=== PATIENT | male | born 1970 | race Caucasian/White ===

== ENCOUNTER 2020-07-24 10:36 | Outpatient (CLI) | payer OTHER, SELFPAY ==
--- NOTE | ~2020-07-24 | MR_ITS ---
EXAMINATION: MR cervical spine wo con EXAM DATE: 07/24/2020 12:11 INDICATION: Cervical radiculopathy. Pain and numbness in left thumb. TECHNIQUE: Multi-sequential, multiplanar MR images of the cervical spine were obtained without contra st. Axial T2, axial T2 MERGE sequence. Sagittal T1, T2, T2 fat saturation images also obtained. Th ere is no prior study for comparison. FINDINGS: The spinal cord signal intensity and intrinsic morphology is normal. Cervicomedullary junc tion is normal in appearance. Mild to moderate disc disease at C5-6 and C6-7. The vertebral bodies ar e aligned in the AP dimension. There are no suspicious marrow signal abnormalities. Paraspinal soft t issue is unremarkable. Level by level evaluation: C2-C3: Disc does not extend beyond the endplate margin. Uncovertebral joint arthropathy: None. Facet joint arthropathy: Mild left. Neural foraminal stenosis: No stenosis. Central canal stenosis: No stenosis. C3-C4: Tiny right central extrusion. Uncovertebral joint arthropathy: None. Facet joint arthropathy: Mild bilateral. Neural foraminal stenosis: No stenosis. Central canal stenosis: No stenosis. C4-C5: There is a minimal diffuse disc bulge. Uncovertebral joint arthropathy: Mild left. Facet joint arthropathy: Mild to moderate bilateral. Neural foraminal stenosis: Mild bilateral. Central canal stenosis: No stenosis. C5-C6: There is a mild to moderate diffuse disc bulge asymmetric to the right. Uncovertebral joint arthropathy: Mild to moderate bilateral. Facet joint arthropathy: Mild bilateral. Neural foraminal stenosis: Moderate to severe right, probably more from disc bulge than arthropathy. Mild left. Central canal stenosis: Mild. C6-C7: There is a mild to moderate diffuse disc bulge asymmetric to the right. Uncovertebral joint arthropathy: Moderate right, mild to moderate left. Facet joint arthropathy: Mild bilateral. Neural foraminal stenosis: Moderate to severe right. Moderate left. Central canal stenosis: Mild. C7-T1: Disc does not extend beyond the endplate margin. Uncovertebral joint arthropathy: Mild bilateral. Facet joint arthropathy: Mild bilateral. Neural foraminal stenosis: No stenosis. Central canal stenosis: No stenosis. IMPRESSION: 1. Moderate to severe right neural foraminal stenosis at C5-6 and 6-7. 2. Otherwise relatively mild cervical spondylosis. Reviewed, dictated and finalized at location B. OSIVES DETONATOR
== END 2020-07-24 10:37 | disposition home or self-care (01) ==
LOC: ANHIMG 10:40
PROVIDERS: PCP Family Medicine; Visit Provider Psychiatry & Neurology Neurology
DX: M47.22 Other spondylosis with radiculopathy, cervical region (principal); M48.02 Spinal stenosis, cervical region
CPT/HCPCS: 72141

== ENCOUNTER → 2021-11-28 11:15 | Outpatient (CLI) | payer OTHER, SELFPAY ==
--- NOTE | ~2021-11-28 | XR_ITS ---
EXAMINATION: XR hand BI arthritis min 3V DATE: 11/28/2021 11:53 INDICATION: Pain in unspecified joint. Bilateral hand pain. TECHNIQUE: 4 views of the right hand and 4 views of the left hand on 7 radiographs were obtained. COMPARISON: None. FINDINGS: RIGHT HAND: Bone alignment is normal. No fracture. There is mild osteoarthritis of triscaphe joint, s evere osteoarthritis of first carpometacarpal joint, moderate osteoarthritis of first-fourth metacarp ophalangeal joints, mild osteoarthritis of fifth metacarpophalangeal joint, moderate osteoarthritis o f first interphalangeal joint, third and fifth proximal interphalangeal joints, and second and third distal interphalangeal joints, mild osteoarthritis of the other interphalangeal joints. LEFT HAND: Bone alignment is normal. No fracture. There is mild osteoarthritis of triscaphe joint, se obdulio osteoarthritis of first carpometacarpal joint, moderate osteoarthritis of second-fourth metacarp ophalangeal joints, mild osteoarthritis of fifth metacarpophalangeal joint, moderate osteoarthritis o f first interphalangeal joint, third and fifth proximal interphalangeal joints, and third distal inte rphalangeal joint, and mild osteoarthritis of the other interphalangeal joints. IMPRESSION: 1. Polyarticular osteoarthritis. Reviewed, dictated and finalized at location A. LOADER
--- NOTE | ~2021-11-28 | XR_ITS ---
EXAMINATION: XR foot LT min 3V DATE: 11/28/2021 11:53 INDICATION: Left foot pain TECHNIQUE: Dorsoplantar, lateral, and 2 oblique views of the left foot were obtained. COMPARISON: 11/09/2017 FINDINGS: There is unchanged moderate to severe osteoarthritis at the first metatarsophalangeal joint . Mild osteoarthritis is noted in multiple interphalangeal joints. There is no fracture. The soft tis sues are unremarkable. A posterior calcaneal enthesophyte is noted. IMPRESSION: 1. Polyarticular osteoarthritis, worst at the first metatarsophalangeal joint. Reviewed, dictated and finalized at location B. RSTATE PLANNER
--- NOTE | ~2021-11-28 | XR_ITS ---
EXAMINATION: XR foot RT min 3V DATE: 11/28/2021 11:53 INDICATION: Right foot pain TECHNIQUE: Dorsoplantar, lateral, and 2 oblique views of the right foot were obtained. COMPARISON: 10/22/2017 FINDINGS: There is unchanged moderate to severe osteoarthritis at the first metatarsophalangeal joint . Mild osteoarthritis is noted in multiple interphalangeal joints. There is no fracture. The soft tis sues are normal. Posterior and plantar calcaneal enthesophytes are noted. IMPRESSION: 1. Polyarticular osteoarthritis, worst at the first metatarsophalangeal joint. Reviewed, dictated and finalized at location B. ET TEACHER
== END ==
PROVIDERS: Visit Provider Physician Assistant
DX: M19.072 Primary osteoarthritis, left ankle and foot (principal); M19.071 Primary osteoarthritis, right ankle and foot; M19.042 Primary osteoarthritis, left hand; M19.041 Primary osteoarthritis, right hand
CPT/HCPCS: 73130; 73630

== ENCOUNTER 2024-09-16 11:22 | Emergency (ER) | payer OTHER, SELFPAY ==
[2024-09-16] VITALS (32 sets, daily range): BP systolic 132–161; BP diastolic 76–103; PULSE 69–85; RESP 12–21; TEMP 36.5; O2SAT 93–96
--- NOTE | ~2024-09-16 | XR_ITS ---
XR chest 1V portable Ordering provider: Elkin Cummings MD History: 54 years Male with . palpitations . Comparison: August 06, 2007 FINDINGS: MEDIASTINUM: The cardiac silhouette is not enlarged. LUNGS: No infiltrates, effusions or pneumothorax. bilateral interstitial thickening with prominent markings which may indicate pneumonitis. OTHER: No free air under the diaphragm. Degenerative changes of the spine. IMPRESSION: bilateral interstitial thickening with prominent markings bilaterally. Pneumonitis cannot be excluded . Clinical correlation advised. Reviewed, dictated and finalized at location A. ENT SUCCESS COACH IMPRESSION: bilateral interstitial thickening with prominent markings bilaterally. Pneumoni tis cannot be excluded. Clinical correlation advised.
--- NOTE | 2024-09-16 11:23 | ECG_ITS ---
Test Date: 2024-09-16 11:37:25 Measurements Intervals [place] Rate: 86 P: 51 LA: 171 QRS: 18 QRSD: 105 T: 57 QT: 345 QTc: 414 Interpretive Statements SINUS RHYTHM WITH OCCASIONAL SUPRAVENTRICULAR PREMATURE COMPLEXES POSSIBLE LEFT ATRIAL ENLARGEMENT [-0.1mV P WAVE IN V1/V2] INCOMPLETE RIGHT BUNDLE BRANCH BLOCK [90+ ms QRS DURATION, TERMINAL R IN V1/V2, 40+ ms S IN I/aVL/V4/V5/V6] ABNORMAL ECG No previous ECG available for comparison Electronically Signed On 09-16-2024 12:31:36 SKID MAN by Marcel Cobb M.D.
[2024-09-16 14:59] LABS: Basophils Absolute Auto 0.1 K/mm3 (0.0-0.1); Basophils Percent Auto 0.7 % (0.2-1.2); Eosinophils Absolute Auto 0.2 K/mm3 (0-0.3); Eosinophils Percent Auto 2.1 % (0-4.4); Hematocrit 48.8 % (42.0-52.0); Hemoglobin 17.4 g/dL (14.0-18.0); Immature Granulocyte Absolute 0.08 K/mm3 (0.00-0.031); Immature Granulocyte Percent A 1.1 % (0-0.5); Lymphocytes Absolute Auto 1.17 K/mm3 (0.9-3.2); Lymphocytes Percent Auto 16.5 % (18.3-44.2); Mean Corpuscular HGB Conc 35.7 g/dl (32-36); Mean Corpuscular Hemoglobin 31.1 pg (26-34); Mean Corpuscular Volume 87.3 fl (80-100); Mean Platelet Volume 10.8 fl (7.4-10.4); Monocytes Absolute Auto 1.1 K/mm3 (0.1-0.6); Monocytes Percent Auto 15.1 % (2.6-8.5); Neutrophils Absolute Auto 4.6 K/mm3 (1.3-6.7); Neutrophils Percent Auto 64.5 % (45.5-73.1); Platelet Count Result 175 k/mm3 (150-375); Red Blood Count 5.59 M/mm3 (4.6-6.20); Red Cell Distribution Width 13.1 % (11.5-14.5); White Blood Count 7.1 K/mm3 (4.5-10.0)
[2024-09-16 15:08] LABS: Alanine Aminotransferase 55 U/L (6-50); Albumin Level 4.2 g/dL (3.5-5.1); Alkaline Phosphatase 69 U/L (38-126); Anion Gap 2 mmol/L (4-12); Aspartate Amino Transferase 36 U/L (17-59); Bilirubin,Total 0.7 mg/dL (0.2-1.3); Blood Urea Nitrogen 18 mg/dL (9-20); Carbon Dioxide 25 mmol/L (22-30); Chloride 107 mmol/L (98-107); Estimated CRCL calculation 115 ml/min; Estimated Glomerular Filt Rate > 60; Glucose 100 mg/dL (65-110); Potassium 3.9 mmol/L (3.4-5.0); Sodium 134 mmol/L (137-145)
[2024-09-16 15:23] LABS: Troponin I < 0.012 ng/mL (0.000-0.034)
--- NOTE | 2024-09-16 16:08 | ED_ITS ---
HPI - General Adult General Chief complaint: Arrhythmia/Palpitations Stated complaint: HTN Time Seen by Provider: 09/16/24 14:17 History of Present Illness HPI narrative: This is a 54-year-old male presenting ED with chief complaint of palpitations. Patient said earlier today he experienced a fluttering in his chest. This was associated with some anxiety. symptoms resolved on their own after 10-15 minutes. They called her primary care physician advised and go to ER immediately. This patient has had a panic attack over 5 years ago. Related Data Allergies Allergy/AdvReac Type Severity Reaction Status Date / Time No Known Allergies Allergy Verified 09/15/24 10:32 [facility] Past Medical History Medical History Abscess of back Right carpal tunnel syndrome Numbness of right hand Carpal tunnel syndrome Ulnar nerve entrapment at elbow Surgical History Surgical History History of decompression of ulnar nerve Family History Family History Father Hypertension Mother Family history of malignant neoplasm of breast in first degree relative Social History Social History Smoking packs per day: 1 Smoking cigarettes per day: 20.0 Smoking status: Current every day smoker Tobacco type: cigarettes Second hand tobacco smoke exposure: No Alcohol intake: current Drinks per week: 14 Substance use: never Substance use type: does not use Living arrangements: with family Occupation/Education: occupation Additional occupation/education comments: 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 Head: atraumatic. EYES: EOMI, NOSE: Atraumatic NECK: Trachea midline RESPIRATORY: No increased rate of breathing Clear to auscultation CARDIOVASCULAR: RRR, no peripheral edema ABDOMINAL: Non-distended soft nontender no guarding rebound MUSCULOSKELETAl: No obvious deformities NEURO: Alert. Moving 4/4 extremities SKIN:: Warm, dry. Normal color PSYCHIATRIC: Normal affect Course Vital Signs Vital signs: Vital Signs Temperature 97.7 F 09/16/24 12:03 Pulse Rate 78 09/16/24 12:03 Respiratory Rate 19 09/16/24 12:03 Blood Pressure 146/87 H 09/16/24 12:03 Pulse Oximetry 96 09/16/24 12:03 Oxygen Delivery Room Air 09/16/24 12:03 Temperature 97.7 F 09/16/24 12:03 Pulse Rate 82 09/16/24 15:46 Respiratory Rate 14 09/16/24 15:46 Blood Pressure 158/86 H 09/16/24 15:46 Pulse Oximetry 95 09/16/24 14:51 Oxygen Delivery Room Air 09/16/24 12:03 Medical Decision Making MDM Narrative Medical decision making narrative: -Course: 54-year-old male presenting ED after a brief episode of palpitations. Patient was monitored in the ED on a management scientist for several hours with no recurrence of his symptoms. No dysrhythmias on telemetry. Chest x-ray, EKG and troponins were all undetectable. Results were discussed with the patient and his , who agreed he will follow-up with a soil conservation technician on an outpatient basis as he may require Holter monitor. They are agreeable this plan. They been given return precautions for chest pain difficulty breathing for palpitations. -DDX includes but is not limited to: SVT, AFib with RVR, anxiety, tachycardia -Co-morbidities complicating care: hypertension -Independent interpretation of studies: labs reviewed chest x-ray showed prominent interstitial markings but patient has no respiratory complaints or signs of pneumonia. Independent EKG interpretation: Rhythm [sinus], Rate [86], [place] -[normal], [place] -[normal], QRS [narrow], QTC [normal], T waves -[negative for concerning inversions], ST Segments - [Negative for concerning elevations] Final interpretations: normal sinus rhythm with occasional PAC -Shared decision making / Disposition:discharged Vital Signs Vital Signs: Vital Signs Temperature 97.7 F 09/16/24 12:03 Pulse Rate 78 09/16/24 12:03 Respiratory Rate 19 09/16/24 12:03 Blood Pressure 146/87 H 09/16/24 12:03 Pulse Oximetry 96 09/16/24 12:03 Oxygen Delivery Room Air 09/16/24 12:03 Temperature 97.7 F 09/16/24 12:03 Pulse Rate 82 09/16/24 15:46 Respiratory Rate 14 09/16/24 15:46 Blood Pressure 158/86 H 09/16/24 15:46 Pulse Oximetry 95 09/16/24 14:51 Oxygen Delivery Room Air 09/16/24 12:03 Lab Data 09/16/24 14:53 09/16/24 14:53 Labs: Lab Results 09/16/24 09/16/24 Range/Units 14:53 17:48 WBC 7.1 (4.5-10.0) K/mm3 RBC 5.59 (4.6-6.20) M/mm3 Hgb 17.4 (14.0-18.0) g/dL Hct 48.8 (42.0-52.0) % MCV 87.3 (80-100) fl MCH 31.1 (26-34) pg MCHC 35.7 (32-36) g/dl RDW 13.1 (11.5-14.5) % Plt Count 175 (150-375) k/mm3 MPV 10.8 H (7.4-10.4) fl Immature Gran % (Auto) 1.1 H (0-0.5) % Neut % (Auto) 64.5 (45.5-73.1) % Lymph % (Auto) 16.5 L (18.3-44.2) % [place]chran % (Auto) 15.1 H (2.6-8.5) % Eos % (Auto) 2.1 (0-4.4) % Baso % (Auto) 0.7 (0.2-1.2) % Lymph # (Auto) 1.17 (0.9-3.2) K/mm3 [place]chran # (Auto) 1.1 H (0.1-0.6) K/mm3 Eos # (Auto) 0.2 (0-0.3) K/mm3 Baso # (Auto) 0.1 (0.0-0.1) K/mm3 Abs Immat Gran (auto) 0.08 H (0.00-0.031) K/mm3 Absolute Neuts (auto) 4.6 (1.3-6.7) K/mm3 Absolute Nucleated RBC 0.000 (0.0-0.012) K/mm3 Nucleated RBC % 0.0 (0.0-0.2) % Sodium 134 L (137-145) mmol/L Potassium 3.9 (3.4-5.0) mmol/L Chloride 107 (98-107) mmol/L Carbon Dioxide 25 (22-30) mmol/L Anion Gap 2 L (4-12) mmol/L BUN 18 (9-20) mg/dL Creatinine 0.80 (0.7-1.3) mg/dL Estim Creat Clear Calc 115 ml/min Estimated GFR > 60 (59 - ) Glucose 100 (65-110) mg/dL Calcium 9.0 (8.4-10.2) mg/dL Total Bilirubin 0.7 (0.2-1.3) mg/dL AST 36 (17-59) U/L ALT 55 H (6-50) U/L Alkaline Phosphatase 69 (38-126) U/L Troponin I < 0.012 < 0.012 (0.000-0.034) ng/mL Total Protein 7.0 (6.3-8.2) g/dL Albumin 4.2 (3.5-5.1) g/dL TSH (Reflex) 2.950 (0.465-4.68) uIU/mL Discharge Plan Discharge Clinical Impression: Heart palpitations Patient Disposition: Home, Self-Care Condition: Stable Instructions: Antibiotic Form, Heart Palpitations (DC) Additional Instructions: You were seen in the emergency department for palpitations. You are monitored for 6 hours in the emergency department and we did not see any dysrhythmias on the management scientist. Please follow-up with your primary care physician and the soil conservation technician listed below as you may need a Holter monitor to evaluate for dysrhythmia. You can return any time developed chest pain, shortness of breath or palpitations. Patient Language: Romansh Prescriptions: No Action buspirone 5 mg tablet 5 mg PO BID PRN (Reason: anxiety) Qty: 60 0RF amlodipine 2.5 mg tablet 2.5 mg PO DAILY Qty: 30 2RF Sutab 1.479-0.188- 0.225 gram tablet See Rx Instructions PO PER PKG DIR Qty: 24 0RF Rx Instructions: Please take as directed per the written instructions that were mailed to you. Follow-up/Referrals: Darya Medellin MD [Primary Care Provider] - 1 Week (Palpitations) Marcel Cobb MD [Physician] - 1 Week (Palpitations)
--- NOTE | 2024-09-16 17:46 | ECG_ITS ---
Test Date: 2024-09-16 17:57:35 Measurements Intervals [place] Rate: 74 P: 41 MD: 184 QRS: 22 QRSD: 114 T: 31 QT: 372 QTc: 415 Interpretive Statements SINUS RHYTHM POSSIBLE LEFT ATRIAL ENLARGEMENT [-0.1mV P-WAVE IN V1/V2] INDETERMINATE AXIS INCOMPLETE RIGHT BUNDLE BRANCH BLOCK [90+ ms QRS DURATION, TERMINAL R IN V1/V2, 40+ ms S IN I/aVL/V4/V5/V6] NONSPECIFIC T-WAVE ABNORMALITY ABNORMAL ECG Electronically Signed On 09-17-2024 08:55:04 WET AND DRY SUGAR BIN OPERATOR by Marcel Cobb M.D.
[2024-09-16 18:17] LABS: Troponin I < 0.012 ng/mL (0.000-0.034)
--- OUTSIDE RECORDS SUMMARY | 2024-09-23 15:36 | XMS_ITS | Referral Summary ---
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
--- OUTSIDE RECORDS SUMMARY | 2024-09-23 15:36 | XMS_ITS | Encounter Summary ---
Author Organization [facility] Healthcare Address [address] [place] [address] Care Team Providers Care Pediatric Psychologist Name Role Phone Kaylie Bull MD Primary Care Provider [phone] Reason for Referral * Neurology (Routine) - Closed Specialty Diagnoses / Procedures Referred By Jerzy mccann Referred To Contact Diagnoses Anesthesia of skin Procedures EMG/NCV -Please select the performing region: [facility]; # Limbs? 1; Anatomical location: Kaylie Sharp MD Phone: tel: fax: [address] [phone] Referral ID Status Reason Start Date Expiration Date Visits Re quested Visits Authorized [id number] Closed 10/17/2019 04/27/2021 1 1 WRITER Reason for Visit * Neurology (Routine) - Closed Specialty Diagnoses / Procedures Referred By Jerzy mccann Referred To Contact Diagnoses Anesthesia of skin Procedures EMG/NCV -Please select the performing region: [facility]; # Limbs? 1; Anatomical location: Kaylie Sharp MD Phone: tel: fax: [address] [phone] Referral ID Status Reason Start Date Expiration Date Visits Re quested Visits Authorized [id number] Closed 10/17/2019 04/27/2021 1 1 Encounter Details Date Type Department Care Team (Latest Contact Info) Description 10/25/2019 9:00 AM AD WRITER - 10/25/2019 11:59 PM AD WRITER Hospital Encounter [facility] Neurological Disorders Testing [address] [place] [address] Kaylie Bull MD [address] [place] [id number] Anesthesia of skin Discharge Disposition: Discharge to home or self care Social History Tobacco Use Types Packs/Day Years Used Date Smoking Tobacco: Never Assessed Sex and Gender Information Value Date Recorded Sex Assigned at Not on file Legal Sex Male 12:59 PM AD WRITER Gender Identity Not on file Sexual Orientation Not on file documented as of this encounter Discharge Disposition Disposition Code Departure Means Destination Discharge to home or self care documented in this encounter Procedure Notes * Damien Quinonez MD - 10/25/2019 9:00 AM CSTAssociated Order(s): EMG/NCV History: This is a 49 years old patient with history of tingling and numbness of right hand. Nerve conduction studies: Right median orthodromic sensory nerve conduction study showed slightly prolonged SNAP peak latency, low amplitude and slow sensory nerve conduction velocity. Right ulnar orthodromic sensory nerve conduction study showed normal SNAP peak latency, normal amplitude and normal sensory nerve conductionvelocity. Right radial antidromic sensory nerve conduction study showed normal SNAP peak latency, normal amplitude and normal sensory nerve conduction velocity. Right median and right ulnar motor nerve conduction studies showed normal DMLs, normal CMAP amplitudes, normal motor nerve conduction velocities and normal F wave latencies. EMG studies: The concentric needle electrode examination was performed on right FDI, APB, flexor carpi radialis,biceps and deltoid. There was no evidence of acute or chronic denervation or reinnervation. The interference pattern is full in all muscle tested. Impressions: This is an abnormal study. 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 The needle EMG study of right upper extremity did not show any ongoing denervation. Clinical correlation is recommended. WRITER documented in this encounter Plan of Treatment Not on file documented as of this encounter Procedures Procedure Name Priority Date/Time Associated Diagnosis Comments EMG/NCV Routine 10/25/2019 9:07 AM AD WRITER Anesthesia of skin documented in this encounter Results * EMG/NCV -Please select the performing region: [facility]; # Limbs? 1; Anatomical location: RUE (10/25/2019 9:07 AM AD WRITER) Anatomical Region Laterality Modality EMG, EMG Narrative 10/25/2019 9:00 AM AD WRITER Damien Quinonez MD ? 10/25/2019 10:36 AM History: This is a 49 years old patient with history of tingling and numbness of right hand. Nerve conduction studies: Right median orthodromic sensory nerve conduction study showed slightly prolonged SNAP peak latency, low amplitude and slow sensory nerve conduction velocity. ??Right ulnar orthodromic sensory nerve conduction study showed normal SNAP peak latency, normal amplitude and normal sensory nerve conduction velocity. Right radial antidromic sensory nerve conduction study showed normal SNAP peak latency, normal amplitude and normal sensory nerve conduction velocity. ??Right median and right ulnar motor nerve conduction studies showed normal DMLs, normal CMAP amplitudes, normal motor nerve conduction velocities and normal F wave latencies. ?? EMG studies: The concentric needle electrode examination was performed on right FDI, APB, flexor carpi radialis, biceps and deltoid. ??There was no evidence of acute or chronic denervation or reinnervation. The interference pattern is full in all muscle tested. Impressions: This is an abnormal study. 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 ??The needle EMG study of right upper extremity did not show any ongoing denervation. ??Clinical correlation is recommended. Kaylie Magdaleno MD NEUROLOGY ORDERABLES Final Result documented in this encounter Visit Diagnoses Diagnosis Anesthesia of skin Disturbance of skin sensation documented in this encounter Care Teams Pediatric Psychologist Relationship Specialty Start Date End Date Kaylie Bull MD PCP - General 10/25/19 documented as of this encounter
--- OUTSIDE RECORDS SUMMARY | 2024-09-23 15:36 | XMS_ITS | Continuity of Care Document ---
Author Organization [facility] Address [address] [place] [address] Phone Care Team Providers Care Java Enterprise Architect Name Role Phone Unavailable Unavailable Unavailable Procedures Procedure Date Office/outpatient visit,est, mod 2007 Supplemental Report Office/outpatient visit,est, mod 2007 Supplemental Report Office consultation, [facility] X-ray exam of shoulder, complete 2007 X-ray exam of knee, 1 or2 views 008 X-ray exam of both knees, standing Advance Directives Directive Yes / No Effective Date File Name No Information Encounters Encounter Description Practice Location Reason(s) For Visit Diagnoses Date Provider Providers Copied on Encounter Office/outpat ient visit,est, [facility], [address], [id number], tel:[phone] [facility] No Information 8 No Information Office/outpat ient visit,est, [facility], [address], [id number], [place] tel:[phone] No Information 8 No Information Office consultation, [facility], [address], [id number], [place] tel:[phone] [place] No Information 8 No Information Family History Family Member Type Diagnosis Age At Onset No Information Payers Payer name Insurance type Covered constitution party ID Authoriza tion(s) [employer] [id number] Social History Type Description Quantity Date Captured Comments Sex Male Smoking Status No Information Chief Complaint And Reason For Visit No Information Reason For Referral Reason For Referral No Information History Of Present Illness Encounter Date Complaint History Of Prese nt Illness No Information Functional Status Date Functional Assessmen t No Information Instructions Date Instruction Additional Infor mation No Information Assessments Type Assessment Date No Information Patient Care Teams Name Effective Dates (start - stop) Status Members No Information
--- OUTSIDE RECORDS SUMMARY | 2024-09-23 15:36 | XMS_ITS | Patient Health Summary ---
Author Organization [facility] Address [address] [facility] [place] [address] Care Team Providers Care Director Public Name Role Phone Elkin May MD Primary Care Provider [phone] Note from [facility],non-owned Affiliates and Associated Physician Practices is amultiple site organization consisting of ambulatory clinics and hospital sitesin [place], [place], [place] and [place]. This disclosure is being madepursuant to the Care Everywhere program and may not contain all information available regarding this patient. Last updated 18.[facility] Immunizations * HEP A VACCINE, ADULT(Given 06/28/2017) Social History Tobacco Use Types Packs/Day Years Used Date Smoking Tobacco: Never Assessed Sex and Gender Information Value Date Recorded Sex Assigned at Not on file Gender Identity Not on file Sexual Orientation Not on file Care Teams Director Public Relationship Specialty Start Date End Date Elkin May MD [address] [place] [address] PCP - General Family Medicine 06/28/17
--- OUTSIDE RECORDS SUMMARY | 2024-09-23 15:36 | XMS_ITS | Encounter Summary ---
Author Organization [facility] Address [address] [place] [address] Care Team Providers Care Injection Press Operator Name Role Phone Elkin May MD Primary Care Provider [phone] Reason for Visit * Reason Comments Imm Inj Encounter Details Date Type Department Care Team (Late st Contact Info) Description 06/28/2017 4:00 PM CDT Office Visit [facility] AT [address] [id number] Provider, [facility] Need for vaccination (Primary Dx) Social History Tobacco Use Types Packs/Day Years Used Date Smoking Tobacco: Never Assessed Sex and Gender Information Value Date Recorded Sex Assigned at Not on file Gender Identity Not on file Sexual Orientation Not on file documented as of this encounter Progress Notes * Richie Cullen APRN-CNP - 06/28/2017 3:55 PM CDT Pt presents for Hep a documented in this encounter Plan of Treatment Not on file documented as of this encounter Visit Diagnoses Diagnosis Need for vaccination- Primary Need for prophylactic vaccination and inoculation against unspecified single disease documented in this encounter Care Teams Injection Press Operator Relationship Specialty Start Date End Date Elkin May MD [address] [place] [address] PCP - General Family Medicine 06/28/17 documented as of this encounter
--- OUTSIDE RECORDS SUMMARY | 2024-09-23 15:36 | XMS_ITS | Referral Summary ---
Author Organization [facility] Address [address] [place] [address] Care Team Providers Care Media Relations Intern Name Role Phone Elkin May MD Primary Care Provider [phone] Source Comments [facility],non-owned Affiliates and Associated Physician Practices is amultiple site organization consisting of ambulatory clinics and hospital sitesin [place], [place], [place]. This disclosure is being madepursuant to the Care Everywhere program and may not contain all information available regarding this patient. Last updated 18.[facility] [employer] Immunizations Name Administration Dates Next Due HEP A VACCINE, ADULT 06/28/2017 Social History Tobacco Use Types Packs/Day Years Used Date Smoking Tobacco: Never Assessed Sex and Gender Information Value Date Recorded Sex Assigned at Not on file Gender Identity Not on file Sexual Orientation Not on file Plan of Treatment Not on file Care Teams Media Relations Intern Relationship Specialty Start Date End Date Elkin May MD [address] [place] [address] PCP - General Family Medicine 06/28/17
--- OUTSIDE RECORDS SUMMARY | 2024-09-23 15:36 | XMS_ITS | Clinical Summary ---
Author Organization [facility] Address [address] [place] [address] Care Team Providers Care Contracts Administrator Name Role Phone Kaylie Bull MD Primary Care Provider [phone] Immunizations Name Administration Dates Next Due Hep A, Adult 06/28/2017 TD Preservative Free 05/19/2002 Tdap 07/25/2012 Social History Tobacco Use Types Packs/Day Years Used Date Smoking Tobacco: Never Assessed Personal Safety Answer Date Recorded Getting School Help Needed Not on file 12/04 Sex and Gender Information Value Date Recorded Sex Assigned at Not on file 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 Gender Identity Not on file Sexual Orientation Not on file Plan of Treatment Health Maintenance Due Date Last Done Comments Colon Cancer Screening-Colonoscopy 1972 Depression Screening 1972 Hepatitis C Screening 1972 Prostate Cancer Screening-PSA 1972 Hepatitis B Screening 1990 Regular Well Visit/Exam 18-64 1990 Zoster Vaccine (1 of 2) 2022 DTaP/Tdap/Td Vaccine (2 - Td or Tdap) 07/25/2022 07/25/2012, 05/19/2002 Influenza Vaccine (#1) 2024 Pneumococcal vaccine <65 Aged Out No longer eligible based on patient's age to complete this topic Insurance [employer] AETNA SIGNATURE Care Teams Contracts Administrator Relationship Specialty Start Date End Date Kaylie Blul MD PCP - General 10/25/19
--- OUTSIDE RECORDS SUMMARY | 2024-09-23 15:36 | XMS_ITS | Clinical Summary ---
Author Organization [facility] Address [address] [facility] [place] [address] Care Team Providers Care Freight Adjuster Name Role Phone Elkin May MD Primary Care Provider [phone] Source Comments [facility],non-owned Affiliates and Associated Physician Practices is amultiple site organization consisting of ambulatory clinics and hospital sitesin [place], [place], [place] and [place]. This disclosure is being madepursuant to the Care Everywhere program and may not contain all information available regarding this patient. Last updated 18.[facility] [address] [facility] Immunizations Name Administration Dates Next Due HEP A VACCINE, ADULT 06/28/2017 Social History Tobacco Use Types Packs/Day Years Used Date Smoking Tobacco: Never Assessed Sex and Gender Information Value Date Recorded Sex Assigned at Not on file Gender Identity Not on file Sexual Orientation Not on file Plan of Treatment Health Maintenance Due Date Last Done Comments COLOGUARD (AGES 45-75) - COL ON CA SCREENING 1972 COLON MONITORING 1972 COLONOSCOPY - COLON CA SCREENING 1972 CT COLONOGRAPHY - COLON CA SCREENING 1972 Colorectal Cancer Screening 1972 FIT - COLON CA SCREENING 1972 FLEX SIG - COLON CA SCREENING 1972 LIPID TESTING 1972 HIV SCREENING 1987 HEPATITIS C SCREENING 03/04/1990 DTAP/TDAP/TD VACCINES (1 - Tdap) 1991 HEPATITIS B VACCINE (1 of 3 - 19+ 3-dose series) 1991 HEPATITIS A VACCINE (2 of 2 - Risk 2-dose series) 12/27/2017 06/28/2017 ZOSTER VACCINE (1 of 2) 2022 DEPRESSION SCREENING 09/20/2023 COVID-19 VACCINE (2023-2 5 season) 2024 INFLUENZA VACCINE (#1) 2024 HIB VACCINE Aged Out No longer eligi ble based on patient's age to complete this topic HPV VACCINE Aged Out No longer eligi ble based on patient's age to complete this topic MENINGOCOCCAL VACCINE Aged Out No josé luis moon eligible based on patient's age to complete this topic PNEUMOCOCCAL VACCINE Aged Out No long er eligible based on patient's age to complete this topic Care Teams Freight Adjuster Relationship Specialty Start Date End Date Elkin May MD [address] [place], [place] [id number] PCP - General Family Medicine 06/28/17
--- OUTSIDE RECORDS SUMMARY | 2024-09-23 22:29 | XMS_ITS | Encounter Summary ---
Author Organization [facility] Address [address] [place] [address] Care Team Providers Care Space Sciences Director Name Role Phone Elkin May MD Primary Care Provider [phone] Reason for Visit * Reason Comments Imm Inj Encounter Details Date Type Department Care Team (Late st Contact Info) Description 06/28/2017 4:00 PM CDT Office Visit [facility] AT [address] [phone] Provider, [facility] Need for vaccination (Primary Dx) Social History [...] disease documented in this encounter Care Teams Space Sciences Director Relationship Specialty Start Date End Date Elkin May MD [address] [place] [address] PCP - General Family Medicine 06/28/17 documented as of this encounter
--- OUTSIDE RECORDS SUMMARY | 2024-09-23 22:29 | XMS_ITS | Patient Health Summary ---
Author Organization [facility] Address [address] [facility] [address] Care Team Providers Care Semiconductor Wafers Tester Name Role Phone Elkin May MD Primary Care Provider [phone] Note from [facility],non-owned Affiliates and Associated Physician Practices is amultiple site organization consisting of ambulatory clinics and hospital sitesin [place], [place], [place] and [place]. This disclosure is being madepursuant to the Care Everywhere program and may not contain all information available regarding this patient. Last updated 18.[facility] Immunizations * HEP A VACCINE, ADULT(Given 06/28/2017) Social History Tobacco Use Types Packs/Day Years Used Date Smoking Tobacco: Never Assessed Sex and Gender Information Value Date Recorded Sex Assigned at Not on file Gender Identity Not on file Sexual Orientation Not on file Care Teams Semiconductor Wafers Tester Relationship Specialty Start Date End Date Elkin May MD [address] [place] [address] PCP - General Family Medicine 06/28/17
--- OUTSIDE RECORDS SUMMARY | 2024-09-23 22:29 | XMS_ITS | Encounter Summary ---
Author Organization [facility] Address [address] [place] [address] Care Team Providers Care Remittance Clerk Name Role Phone Kaylie Bull MD Primary Care Provider [phone] Reason for Referral * Neurology (Routine) - Closed Specialty Diagnoses / Procedures Referred By Jerzy mccann Referred To Contact Diagnoses Anesthesia of skin Procedures EMG/NCV -Please select the performing region: [facility]; # Limbs? 1; Anatomical location: Kaylie Sharp MD Phone: tel: fax: [address] [phone] Referral ID Status Reason Start Date Expiration Date Visits Re quested Visits Authorized [id number] Closed 10/17/2019 04/27/2021 1 1 ING MASTER Reason for Visit * Neurology (Routine) - Closed Specialty Diagnoses / Procedures Referred By Jerzy mccann Referred To Contact Diagnoses Anesthesia of skin Procedures EMG/NCV -Please select the performing region: [facility]; # Limbs? 1; Anatomical location: Kaylie Sharp MD Phone: tel: fax: [address] [phone] Referral ID Status Reason Start Date Expiration Date Visits Re quested Visits Authorized [id number] Closed 10/17/2019 04/27/2021 1 1 Encounter Details Date Type Department Care Team (Latest Contact Info) Description 10/25/2019 9:00 AM DANCING MASTER - 10/25/2019 11:59 PM DANCING MASTER Hospital Encounter [facility] Neurological Disorders Testing [address] [place] [address] Kaylie Bull MD [address] [place] [address] Anesthesia of skin Discharge Disposition: Discharge to home or self care Social History Tobacco Use Types Packs/Day Years Used Date Smoking Tobacco: Never Assessed Sex and Gender Information Value Date Recorded Sex Assigned at Not on file 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 Clinical correlation is recommended. ING MASTER documented in this encounter Plan of Treatment Not on file documented as of this encounter Procedures Procedure Name Priority Date/Time Associated Diagnosis Comments EMG/NCV Routine 10/25/2019 9:07 AM DANCING MASTER Anesthesia of skin documented in this encounter Results * EMG/NCV -Please select the performing region: [facility]; # Limbs? 1; Anatomical location: RUE (10/25/2019 9:07 AM DANCING MASTER) Anatomical Region Laterality Modality EMG, EMG Narrative 10/25/2019 9:00 AM DANCING MASTER Damien Quinonez MD ? 10/25/2019 10:36 AM [...] sensation documented in this encounter Care Teams Remittance Clerk Relationship Specialty Start Date End Date Kaylie Bull MD PCP - General 10/25/19 documented as of this encounter
--- OUTSIDE RECORDS SUMMARY | 2024-09-23 22:29 | XMS_ITS | Clinical Summary ---
Author Organization [facility] [employer] Address [address] [place] [address] Care Team Providers Care Conveyor Loader Name Role Phone Elkin May MD Primary Care Provider [phone] Source Comments [facility] [employer],non-owned Affiliates and Associated Physician Practices is amultiple site organization consisting of ambulatory clinics and hospital sitesin [place], [place], [place] and [place]. This disclosure is being madepursuant to the Care Everywhere program and may not contain all information available regarding this patient. Last updated 18.[facility] [employer] Immunizations Name Administration Dates Next Due HEP [...] age to complete this topic Care Teams Conveyor Loader Relationship Specialty Start Date End Date Elkin May MD [address] [place], [place] [id number] PCP - General Family Medicine 06/28/17
--- OUTSIDE RECORDS SUMMARY | 2024-09-23 22:29 | XMS_ITS | Referral Summary ---
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
--- OUTSIDE RECORDS SUMMARY | 2024-09-23 22:29 | XMS_ITS | Continuity of Care Document ---
Author Organization [facility] Address [address] [place] [address] Phone Care Team Providers Care Train Director Name Role Phone Unavailable Unavailable Unavailable Procedures Procedure Date Office/outpatient visit,est, mod 2007 Supplemental Report Office/outpatient visit,est, mod 2007 Supplemental Report Office consultation, [facility] X-ray exam of shoulder, complete 2007 X-ray exam of knee, 1 or2 views 008 X-ray exam of both knees, standing Advance Directives Directive Yes / No Effective Date File Name No Information Encounters Encounter Description Practice Location Reason(s) For Visit Diagnoses Date Provider Providers Copied on Encounter Office/outpat ient visit,est, [facility] [employer] [facility], [address], [id number], tel:[phone] [facility] No Information 8 No Information Office/outpat ient visit,est, [facility] [employer] [facility], [address], [id number], [place] tel:[phone] No Information 8 No Information Office consultation, [facility] [employer] [facility], [address], [id number], [place] tel:[phone] [place] No Information 8 No Information Family History Family Member Type Diagnosis Age At Onset No Information Payers Payer name Insurance type Covered libertarian ID Authoriza tion(s) Corporate Claims Management [id number] Social History Type Description Quantity Date Captured [...]
--- OUTSIDE RECORDS SUMMARY | 2024-09-23 22:29 | XMS_ITS | Referral Summary ---
Author Organization [facility] Address [address] [facility] [place] [address] Care Team Providers Care Title One Teacher Name Role Phone Elkin May MD Primary Care Provider [phone] Source Comments [facility],non-owned Affiliates and Associated Physician Practices is amultiple site organization consisting of ambulatory clinics and hospital sitesin [place], [place] and [place]. This disclosure is being madepursuant to the Care Everywhere program and may not contain all information available regarding this patient. Last updated 18.[facility] [employer] Immunizations Name Administration Dates Next Due HEP A VACCINE, ADULT 06/28/2017 Social History Tobacco Use Types Packs/Day Years Used Date Smoking Tobacco: Never Assessed Sex and Gender Information Value Date Recorded Sex Assigned at Not on file Gender Identity Not on file Sexual Orientation Not on file Plan of Treatment Not on file Care Teams Title One Teacher Relationship Specialty Start Date End Date Elkin May MD [address] [place] [address] PCP - General Family Medicine 06/28/17
--- OUTSIDE RECORDS SUMMARY | 2024-09-23 22:29 | XMS_ITS | Clinical Summary ---
Author Organization [facility] Address [address] [place] [address] Care Team Providers Care Pulper Operator Name Role Phone Kaylie Bull MD Primary Care Provider [phone] Immunizations Name Administration Dates Next Due Hep A, Adult 06/28/2017 TD Preservative Free 05/19/2002 Tdap 07/25/2012 Social History Tobacco Use Types Packs/Day Years Used Date Smoking Tobacco: Never Assessed Personal Safety Answer Date Recorded Getting School Help Needed Not on file 12/04 Sex and Gender Information Value Date Recorded Sex Assigned at Not on file Legal Sex Male 12:59 PM PEARL DIVER Gender Identity Not on file Sexual Orientation [...] patient's age to complete this topic Insurance [employer] AETNA SIGNATURE Care Teams Pulper Operator Relationship Specialty Start Date End Date Kaylie Bull MD PCP - General 10/25/19
== END 2024-09-16 19:12 | disposition home or self-care (01) ==
PROVIDERS: Emergency Provider Emergency Medicine; PCP Family Medicine
DX: R00.2 Palpitations (principal); I10 Essential (primary) hypertension; F17.210 Nicotine dependence, cigarettes, uncomplicated; Z79.899 Other long term (current) drug therapy; I45.10 Unspecified right bundle-branch block; R94.31 Abnormal electrocardiogram [ECG] [EKG]; I49.1 Atrial premature depolarization
CPT/HCPCS: 36415; 71045; 80053; 84443; 84484; 85025; 93005; 99284

== ENCOUNTER 2024-11-14 00:28 | Day surgery (SDC) | payer OTHER, SELFPAY ==
[2024-10-31 13:19] VITALS: BMI 32.1
--- OUTSIDE RECORDS SUMMARY | 2024-11-14 00:31 | XMS_ITS | Clinical Summary ---
Author Organization [facility] [employer] Address [address] [facility] [place] [address] Care Team Providers Care Senior Software Quality Analyst Name Role Phone Elkin May MD Primary Care Provider [phone] Source Comments [facility] [employer],non-owned Affiliates and Associated Physician Practices is amultiple site organization consisting of ambulatory clinics and hospital sitesin [place], [place], [place] and [place]. This disclosure is being madepursuant to the Care Everywhere program and may not contain all information available regarding this patient. Last updated 18.[facility] [employer] Immunizations Name Administration Dates Next Due HEP [...] 2 - Risk 2-dose series) 12/27/2017 06/28/2017 PNEUMOCOCCAL VACCINE 50+ (1 of 1 - PCV) 2022 ZOSTER VACCINE (1 of 2) 2022 COVID-19 VACCINE (1 - 2023-2 5 season) 2024 INFLUENZA VACCINE (#1) 2024 DEPRESSION SCREENING 09/20/2024 HIB VACCINE Aged Out No longer eligi ble based on patient's age to complete this topic HPV VACCINE Aged Out No longer eligi ble based on patient's age to complete this topic MENINGOCOCCAL (Group B) VACCINE Aged Out No longer eligible based on patient's age to complete this topic MENINGOCOCCAL VACCINE Aged Out No josé luis moon eligible based on patient's age to complete this topic PNEUMOCOCCAL VACCINE Aged Out No long er eligible based on patient's age to complete this topic Care Teams Senior Software Quality Analyst Relationship Specialty Start Date End Date Elkin May MD [address] [place] [address] PCP - General Family Medicine 06/28/17
--- OUTSIDE RECORDS SUMMARY | 2024-11-14 00:31 | XMS_ITS | Patient Health Summary ---
Author Organization [facility] Address [address] [facility] [place] [address] Care Team Providers Care Editing Intern Name Role Phone Elkin May MD Primary Care Provider [phone] Note from [facility],non-owned Affiliates and Associated Physician Practices is amultiple site organization consisting of ambulatory clinics and hospital sitesin [place], [place], [place] and [place]. This disclosure is being madepursuant to the Care Everywhere program and may not contain all information available regarding this patient. Last updated 18.[facility] Immunizations * HEP A VACCINE, ADULT(Given 06/28/2017) Social History Tobacco Use Types Packs/Day Years Used Date Smoking Tobacco: Never Assessed Sex and Gender Information Value Date Recorded Sex Assigned at Not on file Gender Identity Not on file Sexual Orientation Not on file Care Teams Editing Intern Relationship Specialty Start Date End Date Elkin May MD [address] [place] [address] PCP - General Family Medicine 06/28/17
--- OUTSIDE RECORDS SUMMARY | 2024-11-14 00:31 | XMS_ITS | Clinical Summary ---
Author Organization [facility] Address [address] [place] [address] Care Team Providers Care Armored Vehicle Officer Name Role Phone Darya Medellin MD Primary Care Provider [phone] Allergies No known active allergies Medications amLODIPine (NORVASC) 2.5 mg tablet Take 1 tablet (2.5 mg total) by mouth daily 10/09/2024 Active testosterone propionate, bulk, powder 0 08/21/2024 Active Active Problems Problem Noted Date Diagnosed Date Palpitations 10/13/2024 Encounters Date Type Department Care Team Description 10/30/2024 Telephone [facility] Medical Group Cardiology [address] [facility] [address] [place] [address] Damien Burns MD holter monitor issues 10/13/2024 10:00 AM EAR NOSE THROAT SURGEON Ancillary Procedure [facility] Cardiology at [address] [place] [address] Palpitations 10/13/2024 9:15 AM EAR NOSE THROAT SURGEON Office Visit [facility] Cardiology at [address] [place] [phone] Damien Burns MD Palpitations (Primary Dx) from Last 3 Months Immunizations Immunization Administration Dates Next Due Hep A, Adult 06/28/2017 TD Preservative Free 05/19/2002 Tdap 07/25/2012 Family History Medical History Relation Name Comments Heart attack Father Hypertension Father Breast cancer Mother Relation Name Status Comments Father Mother Social History Tobacco Use Types Packs/Day Years Used Date Smoking Tobacco: Every Day Cigarettes Smokeless Tobacco: Former Tobacco Cessation:Ready to Q uit: Not Asked; Counseling Given: Not Answered Sex and Gender Information Value Date Recorded Sex Assigned at Not on file Legal Sex Male 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 Gender Identity Not on file Sexual Orientation Not on file Obstetrics History Last Filed Vital Signs Vital Sign Reading Time Taken Comments Blood Pressure 142/92 10/13/2024 9:08 AM EAR NOSE THROAT SURGEON Pulse 64 10/13/2024 9:08 AM EAR NOSE THROAT SURGEON Temperature - - Respiratory Rate - - Oxygen Saturation 92% 10/13/2024 9:08 AM EAR NOSE THROAT SURGEON Inhaled Oxygen Concentration - - Weight 107 kg (236 lb) 10/13/2024 9:08 AM EAR NOSE THROAT SURGEON Height 180.3 cm (5' 11 ) 10/13/2024 9:08 AM EAR NOSE THROAT SURGEON Body Mass Index 32.92 10/13/2024 9:08 AM EAR NOSE THROAT SURGEON Plan of Treatment Health Maintenance Due Date Last Done Comments Colon Cancer Screening-Colonoscopy 1972 Depression Screening 1972 Hepatitis C Screening 1972 Prostate Cancer Screening-PSA 1972 Hepatitis B Screening 1990 Regular Well Visit/Exam 18-64 1990 Pneumococcal vaccine <65 (1 of 2 - PCV) 1991 Zoster Vaccine (1 of 2) 2022 DTaP/Tdap/Td Vaccine (2 - Td or Tdap) 07/25/202201/2012, 05/19/2002 Influenza Vaccine (#1) 2024 Procedures Procedure Name Priority Date/Time Associated Diagnosis Comments POCT LIPID PANEL Routine 10/13/2024 9:03 AM EAR NOSE THROAT SURGEON Palpitations ELECTROCARDIOGRAM REPORT Routine 025 8:02 AM EAR NOSE THROAT SURGEON Palpitations from Last 3 Months Results * POCT lipid panel (10/13/2024 9:03 AM EAR NOSE THROAT SURGEON) Cholesterol, POC 211 mg/dL HDL, POC 19 mg/dL Triglycerides, POC 207 mg/dL LDL Cholesterol POC 151 mg/dL Chol/HDL Ratio, POC 10.9 Non-HDL Cholesterol, POC 192 mg/dL Cholesterol Total, POC 211 mg/dL Capillary blood 10/13/2024 9 :03 AM EAR NOSE THROAT SURGEON Damien Burns MD POINT OF CARE TEST ORDER MARGARITA Final Result * Electrocardiogram Report (10/13/2024 8:02 AM EAR NOSE THROAT SURGEON) us Damien Burns MD ECG ORDERABLES Final Re sult from Last 3 Months Insurance [facility] CMR Care Teams Armored Vehicle Officer Relationship Specialty Start Date End Date Darya Medellin MD [address] [place] [address] PCP - General Family Medicine 10/13/24
--- OUTSIDE RECORDS SUMMARY | 2024-11-14 00:31 | XMS_ITS | Continuity of Care Document ---
Author Organization [facility] Address [address] [place] [address] Phone Care Team Providers Care Chief Engineer Production Name Role Phone Unavailable Unavailable Unavailable Procedures Procedure Date Office/outpatient visit,est, mod 2007 Supplemental Report Office/outpatient visit,est, mod 2007 Supplemental Report Office consultation, [facility] X-ray exam of shoulder, complete 2007 X-ray exam of knee, 1 or2 views 008 X-ray exam of both knees, standing Advance Directives Directive Yes / No Effective Date File Name No Information Encounters Encounter Description Practice Location Reason(s) For Visit Diagnoses Date Provider Providers Copied on Encounter Office/outpat ient visit[place], [facility], [address], [id number], tel:[phone] No Information 8 No Information Office/outpat ient visit,[place] [facility] [employer] [facility], [address], [id number], [place] tel:[phone] [email or web address] No Information 8 No Information Office consultation, [facility] [employer] [facility], [address], [id number], [place] tel:[phone] [email or web address] No Information 8 No Information Family History Family Member Type Diagnosis Age At Onset No Information Payers Payer name Insurance type Covered constitution party ID Authoriza tion(s) [employer] [id number] Social History Type Description Quantity Date Captured [...]
--- OUTSIDE RECORDS SUMMARY | 2024-11-14 00:31 | XMS_ITS | Encounter Summary ---
Author Organization [facility] Address [address] [place] [address] Care Team Providers Care Sales Order Processor Name Role Phone Darya Medellin MD Primary Care Provider [phone] Reason for Visit * Reason Onset Date Comments holter monitor issues 10/30/2024 Encounter Details Date Type Department Care Team (Late st Contact Info) Description 10/30/2024 Telephone [facility] Medical Group Cardiology [address] [facility] [address] [place] [address] Damien Burns MD [address] [place] [address] holter monitor issues Social History Tobacco Use Types Packs/Day Years Used Date Smoking Tobacco: Every Day Cigarettes Smokeless Tobacco: Former Sex and Gender Information Value Date Recorded Sex Assigned at Not on file Legal Sex Male 12:59 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 The phone's Bluetooth was not working. Troubleshooting fixed the monitor. Provided more patches for the patient. Confirmed the monitor recordedinformation per the website. X MACHINE ASSEMBLER * Telephone Encounter - Mandi Bowden MA - 10/30/2024 10:39 AM CST Spoke to the patient and advised him to come to the office so his monitor can be looked at. X MACHINE ASSEMBLER * Telephone Encounter - Reta Sanchez - 10/30/2024 10:14 AM CST Patient states that he has changed the adhesive to his holter monitor several times and the monitorwill not stay attached. Requesting a call back. Please advise. Thank you. Contact [phone] X MACHINE ASSEMBLER documented in this encounter Plan of Treatment Not on file documented as of this encounter Visit Diagnoses Not on filedocumented in this encounter Care Teams Sales Order Processor Relationship Specialty Start Date End Date Darya Medellin MD [address] [place] [address] PCP - General Family Medicine 10/13/24 documented as of this encounter
--- OUTSIDE RECORDS SUMMARY | 2024-11-14 00:31 | XMS_ITS | Referral Summary ---
Author Organization [facility] Address [address] [place] [address] Care Team Providers Care Steam Hammer Operator Name Role Phone Elkin May MD Primary Care Provider [phone] Source Comments [facility],non-owned Affiliates and Associated Physician Practices is amultiple site organization consisting of ambulatory clinics and hospital sitesin [place], [place], [place] and [place]. This disclosure is being madepursuant to the Care Everywhere program and may not contain all information available regarding this patient. Last updated 18.[facility] [employer] Immunizations Name Administration Dates Next Due HEP A VACCINE, ADULT 06/28/2017 Social History Tobacco Use Types Packs/Day Years Used Date Smoking Tobacco: Never Assessed Sex and Gender Information Value Date Recorded Sex Assigned at Not on file Gender Identity Not on file Sexual Orientation Not on file Plan of Treatment Not on file Care Teams Steam Hammer Operator Relationship Specialty Start Date End Date Elkin May MD [address] [place] [address] PCP - General Family Medicine 06/28/17
--- OUTSIDE RECORDS SUMMARY | 2024-11-14 00:31 | XMS_ITS | Referral Summary ---
Author Organization [facility] Healthcare Address [address] [place] [address] Care Team Providers Care Agile Qa Tester Name Role Phone Darya Medellin MD Primary Care Provider [phone] Encounters Date Type Department Care Team Description 10/30/[address] [facility] Medical [facility] Cardiology [address] [facility] [address] [place] [phone] Damien Burns MD holter monitor issues 10/13/2024 10:00 AM FACILITIES MAINTENANCE ENGINEER Ancillary Procedure [facility] Medical Group Cardiology at [address] [place] [phone] Palpitations 10/13/2024 9:15 AM FACILITIES MAINTENANCE ENGINEER Office Visit [facility] Cardiology at [address] [place] [phone] Damien Burns MD Palpitations (Primary Dx) from Last 3 Months Allergies No known active allergies Medications amLODIPine (NORVASC) 2.5 mg tablet Take 1 tablet (2.5 mg total) by mouth daily 10/09/2024 Active testosterone propionate, bulk, powder 0 08/21/2024 Active Active Problems Problem Noted Date Diagnosed Date Palpitations 10/13/2024 Immunizations Immunization Administration Dates Next Due Hep A, Adult 06/28/2017 TD Preservative Free 05/19/2002 Tdap 07/25/2012 Social History Tobacco Use Types Packs/Day Years Used Date Smoking Tobacco: Every Day Cigarettes Smokeless Tobacco: Former Tobacco Cessation:Ready to Q uit: Not Asked; Counseling Given: Not Answered Sex and Gender Information Value Date Recorded Sex Assigned at Not on file Legal Sex Male 12:59 PM FACILITIES MAINTENANCE ENGINEER Gender Identity Not on file Sexual Orientation Not on file Last Filed Vital Signs Vital Sign Reading Time Taken Comments Blood Pressure 142/92 10/13/2024 9:08 AM FACILITIES MAINTENANCE ENGINEER Pulse 64 10/13/2024 9:08 AM FACILITIES MAINTENANCE ENGINEER Temperature - - Respiratory Rate - - Oxygen Saturation 92% 10/13/2024 9:08 AM FACILITIES MAINTENANCE ENGINEER Inhaled Oxygen Concentration - - Weight 107 kg (236 lb) 10/13/2024 9:08 AM FACILITIES MAINTENANCE ENGINEER Height 180.3 cm (5' 11 ) 10/13/2024 9:08 AM FACILITIES MAINTENANCE ENGINEER Body Mass Index 32.92 10/13/2024 9:08 AM FACILITIES MAINTENANCE ENGINEER Plan of Treatment Not on file Procedures Procedure Name Priority Date/Time Associated Diagnosis Comments POCT LIPID PANEL Routine 10/13/2024 9:03 AM FACILITIES MAINTENANCE ENGINEER Palpitations ELECTROCARDIOGRAM REPORT Routine 025 8:02 AM FACILITIES MAINTENANCE ENGINEER Palpitations from Last 3 Months Results * POCT lipid panel (10/13/2024 9:03 AM FACILITIES MAINTENANCE ENGINEER) Cholesterol, POC 211 mg/dL HDL, POC 19 mg/dL Triglycerides, POC 207 mg/dL LDL Cholesterol POC 151 mg/dL Chol/HDL Ratio, POC 10.9 Non-HDL Cholesterol, POC 192 mg/dL Cholesterol Total, POC 211 mg/dL Capillary blood 10/13/2024 9 :03 AM FACILITIES MAINTENANCE ENGINEER us Damien Burns MD POINT OF CARE TEST ORDER MARGARITA Final Result * Electrocardiogram Report (10/13/2024 8:02 AM FACILITIES MAINTENANCE ENGINEER) us Damien Burns MD ECG ORDERABLES Final Re sult from Last 3 Months Insurance [facility] CMR Care Teams Agile Qa Tester Relationship Specialty Start Date End Date Darya Medellin MD [address] [place] [address] PCP - General Family Medicine 10/13/24
[2024-11-14 11:54] VITALS: BP 138/77; PULSE 61; RESP 17; TEMP 36.1; O2SAT 97; BMI 31.3
[2024-11-14] MEDS: LACTATED RINGERS 1,000 ML 150 ML IV CONT (12:05)
--- NOTE | 2024-11-14 12:05 | WPDANESEPPF ---
Anes - Initial Pre Proc Eval Procedure: Operation Date: 11/14/24 13:00 Proposed Procedures p Screening Colonoscopy - Kervin Ley MD Date/Time: 11/14/24 12:05 Surgeon: Kervin Ley MD Pre Op Diagnosis: screening colon Patient Data Age: 54 Gender: M Height: 1.8 m Weight: 101.9 kg Last Vital Signs Temp 36.1 C L 11/14/24 11:54 Pulse 61 11/14/24 11:54 Resp 17 11/14/24 11:54 BP 138/77 11/14/24 11:54 Pulse Ox 97 11/14/24 11:54 O2 Del Method Room Air 11/14/24 11:54 Allergies Allergy/AdvReac Type Severity Reaction Status Date / Time No Known Allergies Allergy Verified 11/14/24 11:53 Home Medications ?Medication ?Instructions ?Recorded ?Confirmed ?Type buspirone 5 mg tablet 5 mg PO BID PRN anxiety #60 tabs 07/12/23 10/31/24 Rx amlodipine 2.5 mg tablet 2.5 mg PO DAILY #30 tabs 09/11/24 10/31/24 Rx Patient hx anesthesia problems: none Family hx anesthesia problems: none Results Review: All pre-operative results and documents have been reviewed as part of the pre-operative evaluation. [facility] Past Medical History Medical History (Updated 11/14/24 @ 12:06 by Dl Reno DO) Hypertension Abscess of back Right carpal tunnel syndrome Numbness of right hand Carpal tunnel syndrome Ulnar nerve entrapment at elbow Surgical History Surgical History History of decompression of ulnar nerve Family History Family History Father Hypertension Mother Family history of malignant neoplasm of breast in first degree relative Social History Social History (Updated 11/14/24 @ 12:11 by Dl Reno DO) Smoking packs per day: 1 Smoking cigarettes per day: 20.0 Smoking status: Current every day smoker Tobacco type: cigarettes Second hand tobacco smoke exposure: No Alcohol intake: current Alcohol use details: 12/day Substance use: never Substance use type: does not use Living arrangements: with family Occupation/Education: occupation Additional occupation/education comments: 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 Informed Consent: The patient's anesthetic plan and its attendant risks and benefits were discussed with the patient/family/POA. Questions were solicited and answers provided to the satisfaction of the patient/family/POA.
--- NOTE | 2024-11-14 12:43 | P.HP_ITS ---
H&P: HPI History of Present Illness Date/Time: 11/14/24 12:43 Chief Complaint: Screening colonoscopy Narrative: This is the patient's first colonoscopy. There are no GI symptoms and there is no family history of colorectal cancer. Review of Systems Review of Systems: All systems reviewed & are unremarkable except as noted in HPI and below [facility] Past Medical History Medical History (Updated 11/14/24 @ 12:44 by Kervin Ley MD) Hypertension Abscess of back Right carpal tunnel syndrome Numbness of right hand Carpal tunnel syndrome Ulnar nerve entrapment at elbow Surgical History Surgical History History of decompression of ulnar nerve Family History Family History Father Hypertension Mother Family history of malignant neoplasm of breast in first degree relative Social History Social History (Updated 11/14/24 @ 12:11 by Dl Reno, ) Smoking packs per day: 1 Smoking cigarettes per day: 20.0 Smoking status: Current every day smoker Tobacco type: cigarettes Second hand tobacco smoke exposure: No Alcohol intake: current Alcohol use details: 12/day Substance use: never Substance use type: does not use Living arrangements: with family Occupation/Education: occupation Additional occupation/education comments: 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 Gender identity (if verbalized by the patient): Male Meds Home Medications and Allergies Home Medications ?Medication ?Instructions ?Recorded ?Confirmed ?Type buspirone 5 mg tablet 5 mg PO BID PRN anxiety #60 tabs 07/12/23 10/31/24 Rx amlodipine 2.5 mg tablet 2.5 mg PO DAILY #30 tabs 09/11/24 10/31/24 Rx Allergies Allergy/AdvReac Type Severity Reaction Status Date / Time No Known Allergies Allergy Verified 11/14/24 11:53 Vital Signs Vital Signs - 24 hr 11/14/24 11:54 Temperature 97 F L Pulse Rate 61 Respiratory Rate 17 Blood Pressure 138/77 Pulse Oximetry 97 Oxygen Delivery Room Air Exam Const: General: cooperative and healthy appearing Resp: Effort & Inspection: normal respiratory effort and able to speak in complete sentences Auscultation: clear to auscultation bilaterally Cardio: Rate: regular rate Rhythm: regular rhythm GI: Inspection: normal to inspection GI Palp: No No hepatosplenomegaly present Auscultation: normal bowel sounds Rectal Exam: deferred Skin: General skin exam: normal color Psych: Appearance: grossly normal Mental Status: mental status grossly normal Assessment and Plan Assessment and plan (1) Encounter for screening colonoscopy: Code(s): Z12.11 - Encounter for screening for malignant neoplasm of colon Status: Acute Assessment and Plan: The patient is deemed a good candidate for the procedure. Consent signed. Will proceed.
[2024-11-14 13:05] VITALS: BP 119/77; PULSE 62; RESP 14; O2SAT 95
[2024-11-14 13:15] VITALS: BP 128/82; PULSE 67; RESP 18; O2SAT 95
[2024-11-14 13:25] VITALS: PULSE 62; RESP 14; O2SAT 98
--- NOTE | 2024-11-14 13:33 | SUR.PHASEII ---
Pt requested to be discharged. The patient did not want to wait for the doctor to see him.
== END 2024-11-14 13:39 | disposition home or self-care (01) ==
PROVIDERS: PCP Family Medicine; Referring Provider Student in an Organized Health Care Education/Training Program; Visit Provider Internal Medicine Gastroenterology
PROC: 0DJD8ZZ Inspection of Lower Intestinal Tract, Via Natural or Artificial Opening Endoscopic (ICD-10-PCS; CPT 45378; principal; 2024-11-14 13:00)
DX: Z12.11 Encounter for screening for malignant neoplasm of colon (principal); F17.210 Nicotine dependence, cigarettes, uncomplicated; E66.9 Obesity, unspecified; Z68.31 Body mass index [BMI] 31.0-31.9, adult
CPT/HCPCS: 45378; J2003; J2704; J7120

== ENCOUNTER 2025-05-11 12:06 | Emergency (ER) | payer OTHER, SELFPAY ==
--- NOTE | ~2025-05-11 | XR_ITS ---
XR knee LT 3V 05/11/2025 12:52 INDICATION: Left knee pain PROCEDURE: 4 views left knee COMPARISON: No prior studies for comparison. FINDINGS: Fracture, dislocation or subluxation is not identified. Moderate joint effusion. The soft tissues appear within normal limits. No foreign bodies are identified. IMPRESSION: 1: Moderate joint effusion.. Reviewed, dictated and finalized at location O.
[2025-05-11 12:15] VITALS: BP 128/94; PULSE 75; RESP 18; TEMP 36.3; O2SAT 99
--- NOTE | 2025-05-11 12:15 | ED_ITS ---
HPI - Extremity Injury (Lower) General Chief Complaint: Extremity Problem,Nontraumatic Stated Complaint: L Knee Pain Source: patient Mode of arrival: ambulatory Limitations: no limitations History of Present Illness HPI Narrative: 55 y/o male presented for c/o left knee pain x3 days. Endorses pain started after being on his knees laying brenna for several days. He had been wearing knee pads. Pt endorses a pulling sensation in the back of the knee when straightening it, and tightness to the front when bending it. and says the knee is stiff and sore with any movement. Pt has been flying but the pain started p rior to travel. Has used a velcro knee support and took ibuprofen. Denies calf pain or swelling, redness, warmth or bruising, numbness, tingling or weakness. Related Data Allergies Allergy/AdvReac Type Severity Reaction Status Date / Time No Known Allergies Allergy Verified 05/11/25 12:20 Review of Systems Review of Systems: CONSTITUTIONAL: Denies body aches, fever, chills CARDIOVASCULAR: Denies chest pain, palpitations, or edema. RESPIRATORY: Denies cough or dyspnea. SKIN: Denies rash, itching, or wounds. MUSCULOSKELETAL: reports left knee pain denies back pain NEUROLOGIC: Denies headache, numbness, tingling, or weakness. All systems reviewed & are unremarkable except as noted in HPI and below PMFSH Past Medical History Medical History Hypertension Abscess of back Right carpal tunnel syndrome Numbness of right hand Carpal tunnel syndrome Ulnar nerve entrapment at elbow Surgical History Surgical History History of decompression of ulnar nerve Family History Family History Father Hypertension Mother Family history of malignant neoplasm of breast in first degree relative Social History Social History Smoking packs per day: 1 Smoking cigarettes per day: 20.0 Years smoked: 30 Smoking pack-years: 30.00 Smoking status: Current every day smoker Tobacco type: cigarettes Second hand tobacco smoke exposure: No Alcohol intake: current Alcohol use details: 12/day Substance use: never Substance use type: does not use Living arrangements: with family Occupation/Education: occupation Additional occupation/education comments: 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 Please see nursing chart for further information. There is no relevant family history pertinent to the presenting complaint Exam Narrative: GENERAL: Well-appearing, well-nourished, and in no acute distress. CHEST: Speaks in full sentences. No respiratory distress. HEART: Regular rate and rhythm. Normal and equal peripheral pulses. EXTREMITIES: Left knee with mild swelling. No bruising, erythema or warmth. Patient is able to tolerate full flexion, extension but reports tightness in the knee, tolerates internal and external rotation. Endorses left distal Quad tenderness with movement and palpation. No tenderness to palpation of the patella, no effusion or ballottement. No tenderness over the infrapatellar tendon. No tenderness over the proximal fibular head. Distal motor and ne urovascular status intact. SKIN: Warm, dry, no rash. NEURO: Alert and oriented x3. PSYCH: Normal mood and affect Course Course Emergency Course: Patient is aware of diagnosis, understands and agrees to treatment plan. Anticipatory guidance given. Patient agrees to follow-up as directed and is aware of reasons to seek care at the emergency department. Portions of this record may have been created with voice recognition software Level of Care: Express Care Visit Vital Signs Vital signs: Vital Signs Temperature 97.4 F L 05/11/25 12:15 Pulse Rate 75 05/11/25 12:15 Respiratory Rate 18 05/11/25 12:15 Blood Pressure 128/94 H 05/11/25 12:15 Pulse Oximetry 99 05/11/25 12:15 Oxygen Delivery Room Air 05/11/25 12:15 Temperature 97.4 F L 05/11/25 12:15 Pulse Rate 75 05/11/25 12:15 Respiratory Rate 18 05/11/25 12:15 Blood Pressure 128/94 H 05/11/25 12:15 Pulse Oximetry 99 05/11/25 12:15 Oxygen Delivery Room Air 05/11/25 12:15 Reviewed MDM - Extremity Injury (Lower) MDM Narrative Medical decision making narrative: Discussed physical exam findings and xray. YVON applied. Advised supportive measures and signs/symptoms to go to the ER. Pt is appropriate for outpt treatment and f/u. Differential Diagnosis Differential diagnosis: Likely other (osteoarthritis, patella dislocation, patellar tendonitis, tendon rupture, gout, bakers cyst, septic bursitis, dvt, tibial plateau fracture, ligament injury) Imaging Data Radiologist's impression: Patient: Marcel Bee : 1970 MR#: [id number] Age: 55 Acct:[id number] Loc: [id number] ADM Date: 05/11/25 XR knee LT 3V 05/11/2025 12:52 INDICATION: Left knee pain PROCEDURE: 4 views left knee COMPARISON: No prior studies for comparison. FINDINGS: Fracture, dislocation or subluxation is not identified. Moderate joint effusion. The soft tissues appear within normal limits. No foreign bodies are identified. IMPRESSION: 1: Moderate joint effusion.. Discharge Plan Discharge Clinical Impression: Swelling of joint of left knee Patient Disposition: Home Condition: Stable Instructions: Antibiotic Form, Swollen Knee Joint (ED) Additional Instructions: Rest; avoid excessive walking, running, jumping. bear weight as tolerated elevate the left leg Apply ice 15-20 minute intervals several times a day Keep it wrapped with YVON or use a soft knee splint Motrin 800mg every 8 hours, alternate with Tylenol 1000mg every 8 hours as needed Follow up with your primary care provider as needed Follow up with the medical collections specialist, call to schedule an appointment Go to the ER for worsening symptoms or concerns Patient Language: Macedonian Prescriptions: New ibuprofen 800 mg tablet 800 mg PO TID PRN (Reason: pain) Qty: 15 0RF No Action buspirone 5 mg tablet 5 mg PO BID PRN (Reason: anxiety) Qty: 60 0RF amlodipine 2.5 mg tablet 2.5 mg PO DAILY Qty: 90 2RF Follow-up/Referrals: Darya Medellin MD [Primary Care Provider, Family Practice] Dar Velazco MD [Physician, Orthopedics] Time of Disposition: 13:05
== END 2025-05-11 13:22 | disposition home or self-care (01) ==
PROVIDERS: Emergency Provider Nurse Practitioner Family; PCP Family Medicine
DX: M25.462 Effusion, left knee (principal); F17.210 Nicotine dependence, cigarettes, uncomplicated; I10 Essential (primary) hypertension
CPT/HCPCS: 73562; 99213; G0463